=== PATIENT | female | born 1955 | race American Indian/Alaskan Native ===

== ENCOUNTER 2017-02-17 18:43 | Emergency (ER) | payer SELFPAY ==
[2017-02-17] MEDS ORDERED: NORVASC PO ONE (19:03)
--- NOTE | 2017-02-17 19:51 | Cat Scan Report ---
FINAL REPORT PROCEDURE: CT HEAD/BRAIN WO CON TECHNIQUE: Computerized tomography of the head was performed without contrast material. HISTORY: HIV+ headache not on HAART COMPARISON: No prior studies are available for comparison. FINDINGS: The visualized portions of the paranasal sinuses are clear. Mastoid air cells are clear. There is no calvarial fracture. There is no hydrocephalus. No acute intracranial hemorrhage or mass effect is seen. There is no evidence of acute CVA. There is likely dolichoectasia of the basilar artery which measures 5.2 millimeters in diameter. Calcifications are seen in the distal vertebral arteries and ICAs mild vague hypodensities are seen in the subinsular white matter bilaterally, possibly due to chronic small vessel ischemic changes. 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 Likely mild chronic small vessel ischemic changes are seen in the subinsular white matter bilaterally.
[2017-02-17 19:57] LABS: Anion Gap 17 mmol/L; BUN/Creatinine Ratio 12.22; Blood Urea Nitrogen 11 mg/dL (7-17); Calcium 9.6 mg/dL (8.4-10.2); Carbon Dioxide 25 mmol/L (22-30); Glucose 87 mg/dL (65-100); Sodium 142 mmol/L (137-145)
[2017-02-17 19:58] LABS: Alanine Aminotransferase 9 units/L (7-56); Albumin 3.6 g/dL (3.9-5); Albumin/Globulin Ratio 0.8 %; Alkaline Phosphatase 77 units/L (35-129); Creatine Kinase 63 units/L (30-135)
[2017-02-17 19:59] LABS: Bilirubin,Direct < 0.2 mg/dL (0-0.2); Bilirubin,Indirect 0.2 mg/dL
[2017-02-17 20:03] LABS: Basophils % (Auto) 0.5 % (0.0-1.8); Eosinophils % (Auto) 1.7 % (0.0-4.3); Hemoglobin 12.3 gm/dl (10.1-14.3); Mean Corpuscular HGB Conc 32 % (30-34); Mean Corpuscular Hemoglobin 28 pg (28-32); Mean Corpuscular Volume 85 fl (79-97); Platelet Count 178 K/mm3 (140-440); Red Blood Count 4.46 M/mm3 (3.65-5.03); Red Cell Distribution Width 15.2 % (13.2-15.2); White Blood Count 3.7 K/mm3 (4.5-11.0)
[2017-02-17 21:25] LABS: Bilirubin,Urine NEG (Negative); Blood,Urine NEG (Negative); Ketones,Urine NEG (Negative); Leukocyte Esterase,Urine LG (Negative); Mucus,Urine FEW /HPF; Nitrite,Urine NEG (Negative); Protein,Urine <15 mg/dL mg/dL (Negative); Urobilinogen,Urine < 2.0 mg/dL (<2.0)
[2017-02-17] MEDS ORDERED: CATAPRES ONE (21:58)
[2017-02-17] MEDS ORDERED: CATAPRES PO ONE (22:03)
--- NOTE | 2017-02-17 22:08 | Emergency Department Report ---
HPI - General Chief Complaint: High BP Time Seen by Provider: 02/17/17 21:47 - HPI HPI: Room 18 The patient is a 62-year-old female presenting with a chief complaint of headache and elevated blood pressure. Patient states she's developed her headache and knows her blood pressure was high yesterday. Patient states the headache has been intermittent and occipital in location. Patient admits to nausea but denies vomiting or fever. Also states she is having left upper quadrant abdominal pain since last night is cramping in nature. The patient states she recently started her losartan and has been compliant for the past 2- 3 weeks. Location: Head, abdomen Duration: [see above] Quality: Pain Severity: Moderate Modifying factors: [see above] Context: [see above] Mode of transportation: [not driving] ED Past Medical Hx - Past Medical History Previous Medical History?: Yes Hx Hypertension: Yes Hx Diabetes: Yes Hx of Cancer: Yes (hodgkins lymphoma) Hx HIV: Yes Additional medical history: T-cell lymphoma hodgkins lymphoma-resolved - Surgical History Past Surgical History?: Yes Additional Surgical History: spinal cyst - Family History Family history: no significant - Social History Smoking Status: Never Smoker Substance Use Type: None (denies illicit drug use) - Medications Home Medications: Home Medications Medication Instructions Recorded Confirmed Last Taken Type Efavirenz/Emtricitab/Tenofovir 1 each PO QDAY 10/06/13 10/06/13 10/04/13 21:00 History [Atripla Tablet] Insulin Aspart Protam & Aspart 12 unit SQ HS 10/06/13 10/06/13 10/04/13 21:00 History [Novolog Mix 70-30 Flexpen Syrn] Insulin Aspart Protam & Aspart 20 unit SQ QAM 10/06/13 10/06/13 10/05/13 12:00 History [Novolog Mix 70-30 Flexpen Syrn] Losartan [Cozaar] 1 tab PO BID 10/06/13 10/06/13 10/05/13 21:00 History amLODIPine [Norvasc] 10 mg PO DAILY #30 tab 10/06/13 Unknown Rx hydrOXYzine HCL [Atarax] 25 mg PO Q6HR PRN 10/06/13 10/06/13 10/05/13 21:00 History Ondansetron [Zofran ODT TAB] 8 mg PO Q8HR #20 tab.rapdis 02/18/17 Unknown Rx Sulfamethoxazole/Trimethoprim 1 each PO BID #14 tablet 02/18/17 Unknown Rx [Bactrim DS TAB] traMADol [Ultram] 50 mg PO Q6HR PRN #14 tablet 02/18/17 Unknown Rx ED Review of Systems ROS: Stated complaint: HBP Other details as noted in HPI Comment: All other systems reviewed and negative Constitutional: denies: chills, fever Eyes: denies: eye pain, eye discharge, vision change ENT: denies: ear pain, throat pain Respiratory: denies: cough, shortness of breath, wheezing Cardiovascular: denies: chest pain, palpitations Endocrine: no symptoms reported Gastrointestinal: abdominal pain, nausea Genitourinary: denies: urgency, dysuria, discharge Musculoskeletal: denies: back pain, joint swelling, arthralgia Skin: denies: rash, lesions Neurological: headache Psychiatric: denies: anxiety, depression Hematological/Lymphatic: denies: easy bleeding, easy bruising Physical Exam - Physical Exam Vital Signs: Vital Signs 02/17/17 02/17/17 02/17/17 18:55 20:46 20:59 Temperature 98.5 F Pulse Rate 62 62 Respiratory 20 Rate Blood Pressure 198/102 187/89 Blood Pressure [Right] O2 Sat by Pulse 99 Oximetry 02/17/17 02/17/17 02/17/17 21:00 21:01 21:21 Temperature Pulse Rate 54 L 62 52 L Respiratory 17 21 15 Rate Blood Pressure 188/100 196/95 Blood Pressure 187/89 [Right] O2 Sat by Pulse 100 100 99 Oximetry 02/17/17 21:41 Temperature Pulse Rate 59 L Respiratory 14 Rate Blood Pressure 182/91 Blood Pressure [Right] O2 Sat by Pulse 97 Oximetry Vital Signs 02/17/17 02/17/17 02/17/17 18:55 20:46 20:59 Temperature 98.5 F Pulse Rate 62 62 Respiratory 20 Rate Blood Pressure 198/102 187/89 Blood Pressure [Right] O2 Sat by Pulse 99 Oximetry 02/17/17 02/17/17 02/17/17 21:00 21:01 21:21 Temperature Pulse Rate 54 L 62 52 L Respiratory 17 21 15 Rate Blood Pressure 188/100 196/95 Blood Pressure 187/89 [Right] O2 Sat by Pulse 100 100 99 Oximetry 02/17/17 02/17/17 21:41 23:02 Temperature Pulse Rate 59 L 60 Respiratory 14 13 Rate Blood Pressure 182/91 Blood Pressure 159/83 [Right] O2 Sat by Pulse 97 98 Oximetry Physical Exam: GENERAL: The patient is well-developed well-nourished female lying on stretcher not appearing to be in acute distress. [] HEENT: Normocephalic. Atraumatic. Extraocular motions are intact. Patient has moist mucous membranes. NECK: Supple. No meningitic signs are noted. There is no nuchal rigidity CHEST/LUNGS: Clear to auscultation. There is no respiratory distress noted. HEART/CARDIOVASCULAR: Regular. There is no tachycardia. There is no gallop rub or murmur. ABDOMEN: Abdomen is soft, with mild discomfort to palpation in the left upper quadrant. There is no rebound or guarding. Patient has normal bowel sounds. There is no abdominal distention. SKIN: There is no rash. There is no edema. There is no diaphoresis. NEURO: The patient is awake, alert, and oriented. The patient is cooperative. The patient has no focal neurologic deficits. The patient has normal speech. Cranial nerves II through XII grossly intact MUSCULOSKELETAL: There is no evidence of acute injury. ED Course Vital Signs 02/17/17 02/17/17 02/17/17 18:55 20:46 20:59 Temperature 98.5 F Pulse Rate 62 62 Respiratory 20 Rate Blood Pressure 198/102 187/89 Blood Pressure [Right] O2 Sat by Pulse 99 Oximetry 02/17/17 02/17/17 02/17/17 21:00 21:01 21:21 Temperature Pulse Rate 54 L 62 52 L Respiratory 17 21 15 Rate Blood Pressure 188/100 196/95 Blood Pressure 187/89 [Right] O2 Sat by Pulse 100 100 99 Oximetry 02/17/17 21:41 Temperature Pulse Rate 59 L Respiratory 14 Rate Blood Pressure 182/91 Blood Pressure [Right] O2 Sat by Pulse 97 Oximetry - Reevaluation(s) Reevaluation #1: 02/18/17 00:41 Patient's blood pressure has been improved status post medication. Patient states her headache has resolved. Patient CT report has been discussed with her and recommendation to follow up with neurosurgery or her physicians at the [facility] is understood. ED Medical Decision Making - Lab Data Result diagrams: 02/17/17 19:18 02/17/17 19:18 Laboratory Tests 02/17/17 02/17/17 02/17/17 19:18 19:18 19:18 WBC 3.7 L RBC 4.46 Hgb 12.3 Hct 38.0 MCV 85 MCH 28 MCHC 32 RDW 15.2 Plt Count 178 Lymph % (Auto) 34.9 Lewis % (Auto) 13.3 H Eos % (Auto) 1.7 Baso % (Auto) 0.5 Lymph # 1.3 Lewis # 0.5 Eos # 0.1 Baso # 0.0 Seg Neutrophils % 49.6 Seg Neutrophils # 1.9 VBG pH Sodium 142 Potassium 4.0 Chloride 104.0 Carbon Dioxide 25 Anion Gap 17 BUN 11 Creatinine 0.9 Estimated GFR > 60 BUN/Creatinine Ratio 12.22 Glucose 87 Lactic Acid Calcium 9.6 Total Bilirubin 0.40 Direct Bilirubin < 0.2 Indirect Bilirubin 0.2 AST 18 ALT 9 Alkaline Phosphatase 77 Total Creatine Kinase 63 Total Protein 8.0 Albumin 3.6 L Albumin/Globulin Ratio 0.8 Urine Color Urine Turbidity Urine pH Ur Specific Herod Urine Protein Urine Glucose (UA) Urine Ketones Urine Blood Urine Nitrite Urine Bilirubin Urine Urobilinogen Ur Leukocyte Esterase Urine WBC (Auto) Urine RBC (Auto) U Epithel Cells (Auto) Hyaline Casts Urine Mucus Urine Yeast (Budding) 02/17/17 02/17/17 02/17/17 19:18 19:18 20:58 WBC RBC Hgb Hct MCV MCH MCHC RDW Plt Count Lymph % (Auto) Lewis % (Auto) Eos % (Auto) Baso % (Auto) Lymph # Lewis # Eos # Baso # Seg Neutrophils % Seg Neutrophils # VBG pH 7.356 Sodium Potassium Chloride Carbon Dioxide Anion Gap BUN Creatinine Estimated GFR BUN/Creatinine Ratio Glucose Lactic Acid 0.90 Calcium Total Bilirubin Direct Bilirubin Indirect Bilirubin AST ALT Alkaline Phosphatase Total Creatine Kinase Total Protein Albumin Albumin/Globulin Ratio Urine Color Straw Urine Turbidity Clear Urine pH 7.0 Ur Specific Herod 1.006 Urine Protein <15 mg/dl Urine Glucose (UA) Neg Urine Ketones Neg Urine Blood Neg Urine Nitrite Neg Urine Bilirubin Neg Urine Urobilinogen < 2.0 Ur Leukocyte Esterase Lg Urine WBC (Auto) 40.0 H Urine RBC (Auto) 9.0 U Epithel Cells (Auto) 2.0 Hyaline Casts 1 Urine Mucus Few Urine Yeast (Budding) Few - EKG Data -: EKG Interpreted by Me EKG shows normal: sinus rhythm Rate: normal - EKG Data When compared to previous EKG there are: previous EKG unavailable Interpretation: nonspecific ST-T wave petty (T-wave inversions in leads 2, 3, aVF , V3, V4, V5, V6) - Radiology Data Radiology results: report reviewed (CT head, CT abdomen and pelvis), image reviewed (CT head, chest x-ray, CT abdomen and pelvis) interpreted by me: Chest x-ray-no focal infiltrates, no pneumothorax CT head (read by radiologist)-dolichoectasia is seen of the basilar artery. Likely mild chronic small vessel ischemic changes are seen in the subinsular white matter bilaterally. CT abdomen and pelvis (read by radiologist)-there is no evidence of intestinal or urinary tract obstruction. No ileus or enteritis. The appendix is normal. Cholelithiasis is suspected. Further evaluation with ultrasound may be of benefit. - Differential Diagnosis hypertensive urgency, ICH, meningitis, diverticulitis, peptic ulcer disease Critical care attestation.: If time is entered above; I have spent that time in minutes in the direct care of this critically ill patient, excluding procedure time. ED Disposition Clinical Impression: Hypertension, Headache, Vertebrobasilar dolichoectasia, UTI (urinary tract infection) Disposition: DC- TO HOME OR SELFCARE Is pt being admited?: No Does the pt Need Aspirin: No Condition: Stable Instructions: Hypertension (ED) Additional Instructions: Return to the emergency department immediately should you develop worsening symptoms, fever, inability to tolerate food or liquid or any other concerns. Prescriptions: Ondansetron [Zofran ODT TAB] 8 mg PO Q8HR #20 tab.rapdis Sulfamethoxazole/Trimethoprim [Bactrim DS TAB] 1 each PO BID #14 tablet traMADol [Ultram] 50 mg PO Q6HR PRN #14 tablet PRN Reason: Pain Referrals: PRIMARY CARE, [Primary Care Provider] - 3-5 Days CARLOS HERMAN MD [Staff Physician] - 3-5 Days (Dr. Jj Loving is a neurosurgeon. Please follow up with her further evaluation of your basilar artery dolichoectasia) Time of Disposition: 00:41
[2017-02-17] MEDS ORDERED: NACL ONE (22:56)
[2017-02-17 23:03] VITALS: BP 159/83
--- NOTE | 2017-02-18 00:24 | Cat Scan Report ---
FINAL REPORT PROCEDURE: CT ABDOMEN PELVIS W CON TECHNIQUE: Computerized axial tomography of the abdomen and pelvis was performed after the IV injection of iodinated nonionic contrast. HISTORY: left-sided abdominal pain COMPARISON: No prior studies are available for comparison. FINDINGS: Visualized lower thorax: No significant abnormality. Liver: Normal size and attenuation. Spleen: Normal size and attenuation. Gallbladder and biliary system: A few small stones are identified within the gallbladder lumen. No dilatation of the biliary ductal system. Further evaluation with ultrasound may be appropriate.. Pancreas: Normal. Adrenals: Normal. Kidneys: Both kidneys have normal size. No hydronephrosis. There is a 1.5 centimeter cyst in the posterior left renal cortex.. GI tract: The stomach is normal. The small bowel has a normal appearance. The cecum, appendix and colon are normal.. Lymph nodes and mesentery: Normal. Vasculature: Mild atherosclerosis of the aorta and branching vessels. Bladder: Normal. Reproductive organs: There are some calcifications within the uterus, fibroid formation is suspected.. Peritoneum: No free fluid. Musculoskeletal structures: Mild degenerative changes of the spine.. Other: None. IMPRESSION: There is no evidence of intestinal or urinary tract obstruction. No ileus or enteritis. The appendix is normal. Cholelithiasis is suspected. Further evaluation with ultrasound may be of benefit.
--- NOTE | 2017-02-18 08:25 | XRay Report ---
Chest 2 views. History: Dyspnea. Findings: The heart is borderline in size with normal pulmonary vascularity. The lungs are clear. There is no pleural fluid. Impression: No acute findings.
== END 2017-02-18 01:45 | disposition home or self-care (01) ==
LOC: ED 18:43
DX: I10 Essential (primary) hypertension (principal); G45.0 Vertebro-basilar artery syndrome; N39.0 Urinary tract infection, site not specified; R51 Headache; E11.9 Type 2 diabetes mellitus without complications; Z79.4 Long term (current) use of insulin
CPT/HCPCS: 36415; 70450; 71020; 74177; 80048; 80074; 81001; 82140; 82550; 82805; 85025; 87086; 93005; 93010; 99284; Q9967